=== PATIENT | male | born 1970 | race Caucasian/White ===

== ENCOUNTER 2017-01-24 17:27 | Emergency (ER) | payer OTHER ==
[~2017-01-24 17:27] MED LIST: buPROPion 100 MG TAB PO SCH
--- NOTE | 2017-01-24 17:38 | EDPHY ---
H & P Stated Complaint: abdominal pain, withdrawing from pain meds HPI/ROS: CHIEF COMPLAINT: Abdominal pain secondary to pain medication withdrawal HISTORY OF PRESENT ILLNESS: The patient is a 46 y/o male who complains of severe abdominal pain secondary to opioid medication withdrawal. 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 He has been in withdrawal for a few days. He had been taking 30mg Oxycodone 4-5 times a day, 30mg Morphine extended release twice daily, and 150mg Wellbutrin twice daily. He attempted to stop these prescriptions several months ago, but subsequently started taking the medications again. After moving here from [place], he decided to go to the [facility] to detox from his prescriptions. He stopped taking all of his prescription medications, including Wellbutrin.He is motivated to stop taking his opiate medications and plans on returning to the [facility] after being seen here. Due to withdrawal he is also vomiting, not eating, and experiencing insomnia. Denies seizures, hypertension, chest pain, fever, weakness, paresthesias, or other pertinent symptoms. Denies tobacco or alcohol use. No IVDA. He was sent here from the [facility] for treatment of withdrawal symptoms--no librium available until HOSE STRIPPER is able to assess patient later tonight. REVIEW OF SYSTEMS: A ten point review of systems was performed and is negative with the exception of the items mentioned in the HPI. Past medical history: Umbilical hernia Multiple fractures secondary to a pro-wrestler career Past surgical history: Neck Back Wrist Social history: Recently moved to [place] from [place] Staying with brother Single Non-smoker General Appearance: Looks extremely uncomfortable. Alert. Vital signs reviewed. Blood pressure 142/89, heart rate 119 at triage. Eyes: Pupils equal and round, no conjunctival injection, no discharge. Anicteric. ENT, Mouth: Mucous membranes are moist, no oropharyngeal erythema or edema. Neck: No lymphadenopathy, supple. Respiratory: Lungs are clear to auscultation; no wheezes, rales, or rhonchi. Cardiovascular: Regular rate and rhythm; no murmur, rub, or gallop. Gastrointestinal: Diffuse tenderness with voluntary guarding, abdomen is soft, no masses or organomegaly, bowel sounds normal. Skin: Warm and dry, no rashes on exposed skin, normal color. No piloerection. Back: Nontender to palpation over the thoracolumbar spine. No CVAT. Extremities: No lower extremity edema, no calf tenderness or swelling. Neurological: Alert and oriented. Moving all four extremities easily and equally. Psychiatric: Normal affect. - Personal History Current Tetanus/Diphtheria Vaccine: Yes Current Tetanus Diphtheria and Acellular Pertussis (TDAP): Yes Tetanus Vaccine Date: < 10 years - Medical/Surgical History Hx Asthma: No Hx Chronic Respiratory Disease: No Hx Diabetes: No Hx Cardiac Disease: No Hx Renal Disease: No Hx Cirrhosis: No Hx Alcoholism: No Hx HIV/AIDS: No Hx Splenectomy or Spleen Trauma: No Other PMH: neck sx, back sx, henia, wrist sx - Social History Smoking Status: Never smoked Constitutional: Initial Vital Signs Temperature (C) 36.8 C 01/24/17 17:31 Heart Rate 119 H 01/24/17 17:31 Respiratory Rate 20 01/24/17 17:31 Blood Pressure 142/89 H 01/24/17 17:31 O2 Sat (%) 98 01/24/17 17:31 O2 Delivery Mode Room Air Allergies/Adverse Reactions: cephalexin [From Keflex] Allergy (Verified 01/24/17 17:29) Home Medications: Medication Instructions Recorded ADDERALL 15 MG TABLET 01/24/17 Oxycodone HCl 01/24/17 TESTOSTERONE 01/24/17 buPROPion [Wellbutrin] 100 mg PO BID #14 tab 01/24/17 morphINE 01/24/17 Medical Decision Making ED Course/Re-evaluation: The patient is a 46 yo male who presents with moderate diffuse abdominal tenderness likely secondary to Oxycodone, Morphine, and Wellbutrin withdrawal. We discussed the inadvisability of abruptly stopping Wellbutrin and he is being provided with a RX so that he can wean this medication. Plan on IV, 1L IV NS, 10mg IV Valium, and 4mg IV Zofran. After above medications he was able to sleep. His abdominal pain was improved on re-exam, no peritoneal signs. He was able to take PO. I do not suspect a surgical problem, pancreatitis, gastritis, or gastroenteritis. He is returning to the [facility] via cab for continued detox. Librium prepack provided. He is noted to have continued high blood pressure readings--153/92 with HR of 93. He is advised to have BP re-checked by PCP once he has completed his recovery. He is given referral to [facility]. - Data Points Medications Given: Discontinued Medications Chlordiazepoxide (Librium 25 Mg Prepack#6) 1 btl TAKEHOME EDNOW ONE Stop: 01/24/17 17:59 Last Admin: 01/24/17 18:46 Dose: 1 btl Clonidine (Catapres) 0.2 mg PO EDNOW ONE Stop: 01/24/17 18:14 Last Admin: 01/24/17 18:41 Dose: 0.2 mg Diazepam (Valium Injection) 10 mg IVP EDNOW ONE Stop: 01/24/17 17:53 Last Admin: 01/24/17 18:06 Dose: 10 mg Diazepam (Valium Injection) 5 mg IVP EDNOW ONE Stop: 01/24/17 18:14 Last Admin: 01/24/17 18:42 Dose: Not Given Sodium Chloride (Ns) 1,000 mls @ 0 mls/hr IV EDNOW ONE; Wide Open PRN Reason: Protocol Stop: 01/24/17 17:55 Last Admin: 01/24/17 18:04 Dose: 1,000 mls Ondansetron HCl (Zofran) 4 mg IVP EDNOW ONE Stop: 01/24/17 17:55 Last Admin: 01/24/17 18:05 Dose: 4 mg Departure - Departure Disposition: Home, Routine, Self-Care Clinical Impression: Opiate withdrawal Condition: Fair Instructions: Bupropion (By mouth), Chlordiazepoxide (By mouth), Opioid Withdrawal (ED) Additional Instructions: Return to the [facility] to continue withdrawal. Medication will be available to treat your symptoms. You should not abruptly stop your Wellbutrin. I am prescribing Wellbutrin, 100 mg twice daily--you should wean this. This is not quite the same dosage that you were taking, but this is the dosage that we have available to provide to you. I believe that you were taking extended release 150 mg twice daily. I am starting you on a slightly lower dosage. Referrals: [facility] [Outside] - As per Instructions [facility] [Outside] - As per Instructions Prescriptions: buPROPion [Wellbutrin] 100 mg PO BID #14 tab Report Scribed for: Magi Nguyen Report Scribed by: Jenelle Pope Date of Report: 01/24/17 Time of Report: 18:04 Physician Review and Approval Statement: 01/24/17 17:37 Portions of this note were transcribed by the director biomedical engineering. I, Dr. Magi Nguyen, personally performed the history, physical exam, and medical decision- making; and confirmed the accuracy of the information in the transcribed note.
[2017-01-24] MEDS ORDERED: DIAZEPAM 10 MG/2 ML SYR IVP ONE ×2 (17:52→18:13)
[2017-01-24] MEDS ORDERED: NS 1,000 ML IV ONE (17:54)
[2017-01-24] MEDS ORDERED: ONDANSETRON 4 MG/2 ML VIAL IVP ONE (17:54)
[2017-01-24] MEDS ORDERED: CHLORDIAZEPOXIDE 25MG PREPK#6 BTL TAKEHOME ONE (17:58)
--- NOTE | 2017-01-24 18:35 | ASMTCMCOM ---
CM Note CM Note Notes: CASE MGMT; Patient coming from Withdrawal Management at [facility] (formerly the [facility]) where he has been for 3 days, to the ED for acute abdominal pain related to opiate withdrawal. Patient abruptly stopped taking his narcotic pain medication because he doesn't want to be on them anymore. Pt also abruptly stopped his Wellbutrin and other medications. Pt is here from [place] and initially came here for a job but lost the job recently. Patient has been living with his brother. Patient wants to return to detox and then followup with a local provider since he plans on being in [place] for a few months. Patient provided 10 tabs of his Wellbutrin Rxn so that he can start back up on it. Patient also provided information on [facility] for followup after dc from . Date Signed: 01/24/2017 06:35 PM Electronically Signed By:Jennifer Stanley
[2017-01-24 19:30] VITALS: BP 153/92; PULSE 93; O2SAT 95
[2017-01-24 19:44] VITALS: RESP 18; TEMP 99.1
== END 2017-01-24 20:00 | disposition home or self-care (01) ==
DX: F11.23 Opioid dependence with withdrawal (principal); E86.9 Volume depletion, unspecified
CPT/HCPCS: J2405

== ENCOUNTER 2017-01-27 18:58 | Emergency (ER) | payer OTHER ==
[2017-01-27 19:05] VITALS: RESP 18; TEMP 99
[2017-01-27] MEDS ORDERED: LORazepam 1 MG TAB PO ONE (20:48)
[2017-01-27] MEDS ORDERED: ONDANSETRON DISINTEGRATING 4 MG TAB PO ONE (20:48)
--- NOTE | 2017-01-27 20:54 | EDPHY ---
H & P Time Seen by Provider: 01/27/17 20:32 HPI/ROS: CHIEF COMPLAINT: Opiate withdrawal, insomnia HISTORY OF PRESENT ILLNESS: 46-year-old male history of opiate dependence, has been opiate withdrawal for few days. He was seen emergency department 3 days ago for same complaints with symptoms moderated with administration of benzodiazepine, Zofran, clonidine and discharged back to the withdrawal management at [facility]. He returns complaining of continued insomnia as well as nausea. No abdominal pain. No fever or chills. No hallucination. No suicidal or homicidal ideation. REVIEW OF SYSTEMS: A ten point review of systems was performed and is negative with the exception of the items mentioned in the HPI or PAST MEDICAL & SURGICAL HISTORY: opiate dependence. 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 Appears anxious 2) HEAD: Normocephalic, atraumatic 3) HEENT: Pupils equal, round, reactive to light bilaterally. Sclera anicteric. 4) NECK: Full range of motion, no meningeal signs. 5) LUNGS: Clear auscultation bilaterally, no wheezes, no rhonchi, no retractions. 6) HEART: Regular rate and rhythm, no murmur, no heave, no gallop. 7) ABDOMEN: No guarding, no rebound, no focal tenderness, 8) MUSCULOSKELETAL: Moving all extremities, no focal areas of tenderness, no obvious trauma. No peripheral edema or discoloration. 9) BACK: no visual or palpable abnormality. 10) SKIN: No rash, no petechiae. 11) Psychiatric: Patient is oriented X 3, there is no agitation. DIFFERENTIAL DIAGNOSIS: In no particular include but limited to acute anxiety , acute opiate withdrawal, opiate dependence Smoking Status: Never smoked Constitutional: Initial Vital Signs Temperature (C) 37.2 C 01/27/17 19:00 Heart Rate 94 01/27/17 19:00 Respiratory Rate 18 01/27/17 19:00 Blood Pressure 108/90 H 01/27/17 19:00 O2 Sat (%) 98 01/27/17 19:00 O2 Delivery Mode Room Air Allergies/Adverse Reactions: cephalexin [From Keflex] Allergy (Verified 01/27/17 19:02) Home Medications: Medication Instructions Recorded NK [No Known Home Meds] 01/27/17 MDM/Departure - MDM Medications Given: Discontinued Medications Clonidine (Catapres) 0.2 mg PO EDNOW ONE Stop: 01/27/17 20:50 Last Admin: 01/27/17 21:45 Dose: 0.2 mg Lorazepam (Ativan) 1 mg PO EDNOW ONE Stop: 01/27/17 20:49 Last Admin: 01/27/17 21:39 Dose: 1 mg Ondansetron HCl (Zofran Odt) 4 mg PO EDNOW ONE Stop: 01/27/17 20:49 Last Admin: 01/27/17 21:39 Dose: 4 mg ED Course/Re-evaluation: 8:49 p.m.: Old medical records reviewed. Will administer oral clonidine, Ativan, Zofran and re-evaluate. 9:46 pm: Re-evaluation after oral clonidine Ativan Zofran. He is sleeping. [facility] - Depart Disposition: Home, Routine, Self-Care Clinical Impression: Opiate withdrawal Condition: Good Instructions: Narcotic Abuse (ED) Additional Instructions: Return to the emergency department if you develop new or worsening symptoms, if you develop abdominal pain, vomiting, cannot keep food or fluid down or any other symptoms that concern you. Referrals: [facility] [Outside] - As per Instructions
[2017-01-27 22:23] VITALS: BP 110/86; PULSE 90; O2SAT 95
== END 2017-01-27 22:23 | disposition home or self-care (01) ==
DX: F11.23 Opioid dependence with withdrawal (principal)

== ENCOUNTER 2017-01-28 22:45 | Emergency (ER) | payer OTHER ==
[2017-01-28] MEDS ORDERED: ONDANSETRON DISINTEGRATING 4 MG TAB PO ONE (23:27)
[2017-01-28] MEDS ORDERED: LORazepam 1 MG TAB PO ONE (23:27)
[2017-01-29] MEDS ORDERED: NS 1,000 ML IV ONE (00:30)
[2017-01-29] MEDS ORDERED: KETOROLAC 30 MG/1 ML SDV IVP ONE (00:30)
[2017-01-29] MEDS ORDERED: PROMETHAZINE HCL 25 MG/ML INJ IVP ONE (00:31)
[2017-01-29 00:44] LABS: ALANINE AMINOTRANSFERASE 113 IU/L (21-72); ALBUMIN 3.8 g/dL (3.5-5.0); ALKALINE PHOSPHATASE 67 IU/L (38-126); ANION GAP 13 mEq/L (8-16); ASPARTATE AMINOTRANSFERASE 69 IU/L (17-59); BILIRUBIN,TOTAL 1.7 mg/dL (0.1-1.4); BILIRUBIN-CONJUGATED 0.7 mg/dL (0.0-0.5); CALCIUM 8.9 mg/dL (8.5-10.4); CARBON DIOXIDE 30 mEq/l (22-31); CHLORIDE 92 mEq/L (97-110); CREATININE 1.5 mg/dL (0.7-1.3); GLOMERULAR FILTRATION RATE 50; GLUCOSE 106 mg/dL (70-100); POTASSIUM 3.6 mEq/L (3.5-5.2); SODIUM 135 mEq/L (134-144); TOTAL PROTEIN 6.7 g/dL (6.3-8.2)
[2017-01-29] MEDS ORDERED: IOPAMIDOL (ISOVUE-300) 100 ML BTL ONE (00:59)
[2017-01-29 01:00] LABS: % IMMATURE GRANULYOCYTES 1.3 % (0.0-1.1); ABSOLUTE IMMATURE GRANULOCYTES 0.26 10^3/uL (0.00-0.10); ADD DIFF? NO; ADD MORPH? NO; ADD SCAN? NO; ATYPICAL LYMPHOCYTE FLAG 0 (0-99); FRAGMENT RBC FLAG 0 (0-99); HEMATOCRIT 53.5 % (40.0-51.0); HEMOGLOBIN 18.4 g/dL (13.7-17.5); LEFT SHIFT FLG 0 (0-99); LIPEMIA HEMOLYSIS FLAG 90 (0-99); MEAN CELL HEMOGLOBIN 29.9 pg (27.9-34.1); MEAN CELL HEMOGLOBIN CONCENTR. 34.4 g/dL (32.4-36.7); MEAN CELL VOLUME 86.9 fL (81.5-99.8); MEAN PLATELET VOLUME 9.6 fL (8.7-11.7); PLATELET CLUMPS FLAG 10 (0-99); PLATELET COUNT 373 10^3/uL (150-400); RED BLOOD CELL COUNT 6.16 10^6/uL (4.40-6.38); RED CELL DISTRIBUTION WIDTH 13.9 % (11.5-15.2)
[2017-01-29] MEDS: NS 1,000 ML IV ONE ×2 (01:19→01:20)
--- NOTE | 2017-01-29 02:56 | EDPHY ---
H & P Time Seen by Provider: 01/28/17 23:26 HPI/ROS: HPI The patient presents from the [facility] with continued abdominal pain, now vomiting. He has been seen several times in the emergency department for this after stopping his opiate prescriptions approximately 5 days ago. Today after vomiting he developed periumbilical abdominal pain with a warm sensation coming over his body. It feels different than his other pain. He continues to have diarrhea and denies any fever.. REVIEW OF SYSTEMS Constitutional: No fever, no chills. Eyes: No discharge. ENT: No sore throat. Cardiovascular: No chest pain, no palpitations. Respiratory: No cough, no shortness of breath. Gastrointestinal: See HPI Genitourinary: No hematuria. Musculoskeletal: No back pain. Skin: No rashes. Neurological: No headache. 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 PHYSICAL General Appearance: Alert, no distress Eyes: Pupils equal and round no pallor or injection ENT, Mouth: Mucous membranes moist Respiratory: There are no retractions, lungs are clear to auscultation Cardiovascular: Regular rate and rhythm Gastrointestinal: Abdomen is soft with diffuse tenderness without rebound or guarding Neurological: A&O, moves all extremities Skin: Warm and dry, no rashes Musculoskeletal: Neck is supple non tender Extremities: symmetrical, full range of motion Psychiatric: Patient is oriented X 3, there is no agitation Smoking Status: Never smoked Constitutional: Initial Vital Signs Temperature (C) 37.6 C 01/28/17 22:57 Heart Rate 120 H 01/28/17 22:57 Respiratory Rate 16 01/28/17 22:57 Blood Pressure 111/82 H 01/28/17 22:57 O2 Sat (%) 95 01/28/17 22:57 O2 Delivery Mode Room Air Allergies/Adverse Reactions: cephalexin [From Keflex] Allergy (Verified 01/27/17 19:02) Home Medications: Medication Instructions Recorded NK [No Known Home Meds] 01/27/17 MDM/Departure - MDM Imaging Results: CT abdomen pelvis with IV contrast demonstrates small amount of free fluid in the pelvis of uncertain etiology, pancreatic head inflammation, discussed with Dr. Boothe of Radiology. Imaging: Discussed imaging studies w/ marble setter helper Radiologist Medications Given: Discontinued Medications Clonidine (Catapres) 0.2 mg PO EDNOW ONE Stop: 01/28/17 23:28 Last Admin: 01/28/17 23:49 Dose: 0.2 mg Sodium Chloride (Ns) 1,000 mls @ 0 mls/hr IV EDNOW ONE; Wide Open PRN Reason: Protocol Stop: 01/29/17 00:31 Last Admin: 01/29/17 01:20 Dose: 1,000 mls Sodium Chloride (Ns) 1,000 mls @ 0 mls/hr IV EDNOW ONE; Wide Open PRN Reason: Protocol Stop: 01/29/17 00:31 Last Admin: 01/29/17 01:20 Dose: 1,000 mls Ketorolac Tromethamine (Toradol) 15 mg IVP EDNOW ONE Stop: 01/29/17 00:31 Last Admin: 01/29/17 01:18 Dose: 15 mg Lorazepam (Ativan) 1 mg PO EDNOW ONE Stop: 01/28/17 23:28 Last Admin: 01/28/17 23:38 Dose: 1 mg Ondansetron HCl (Zofran Odt) 4 mg PO EDNOW ONE Stop: 01/28/17 23:28 Last Admin: 01/28/17 23:38 Dose: 4 mg Promethazine HCl (Phenergan) 25 mg IVP EDNOW ONE Stop: 01/29/17 00:32 Last Admin: 01/29/17 01:19 Dose: 25 mg ED Course/Re-evaluation: This is a 46-year-old male with history of opiate abuse, now at [facility] for detox. He has not had any opiates in 5 days. He has symptoms of abdominal pain, vomiting, diarrhea. He has been seen for this abdominal pain several times in the emergency room, however today the pain is much worse. Differential diagnosis includes bowel perforation, gastritis, pancreatitis. In the emergency department, patient was given IV fluids and antiemetics. Labs were checked and did reveal hemoconcentration consistent with dehydration. His CT scan was performed showing free fluid in the pelvis, I am not sure what could have caused this. He also has some inflammation of the pancreatic head with a normal lipase. I do not think either of these findings are contributing to his symptomatology. He has felt better after receiving fluids and medications. He has not had any ongoing vomiting. He will be [facility] back to the [facility]. - Depart Disposition: Home, Routine, Self-Care Clinical Impression: Opiate withdrawal, Dehydration Abdominal pain Qualifiers: Abdominal location: generalized Qualified Code(s): R10.84 - Generalized abdominal pain Vomiting Qualifiers: Vomiting type: unspecified Vomiting Intractability: unspecified Nausea presence : with nausea Qualified Code(s): R11.2 - Nausea with vomiting, unspecified Condition: Good Instructions: Dehydration (ED) Additional Instructions: Please make sure to drink plenty of fluids. You should return to the emergency room if your worse in any way. Referrals: [facility] [Outside] - As per Instructions
--- NOTE | 2017-01-29 03:20 | EDPHY ---
H & P Stated Complaint: Abd pain Time Seen by Provider: 01/28/17 23:26 - Personal History Current Tetanus/Diphtheria Vaccine: Unsure Current Tetanus Diphtheria and Acellular Pertussis (TDAP): Unsure Tetanus Vaccine Date: < 10 years - Medical/Surgical History Hx Asthma: No Hx Chronic Respiratory Disease: No Hx Diabetes: No Hx Cardiac Disease: No Hx Renal Disease: No Hx Cirrhosis: No Hx Alcoholism: No Hx HIV/AIDS: No Hx Splenectomy or Spleen Trauma: No Other PMH: neck sx, back sx, henia, wrist sx. opiate addiction - Social History Smoking Status: Never smoked Constitutional: Initial Vital Signs Temperature (C) 37.6 C 01/28/17 22:57 Heart Rate 120 H 01/28/17 22:57 Respiratory Rate 16 01/28/17 22:57 Blood Pressure 111/82 H 01/28/17 22:57 O2 Sat (%) 95 01/28/17 22:57 O2 Delivery Mode Room Air Allergies/Adverse Reactions: cephalexin [From Keflex] Allergy (Verified 01/27/17 19:02) Home Medications: Medication Instructions Recorded NK [No Known Home Meds] 01/27/17 Medical Decision Making - Data Points Laboratory Results: Laboratory Results 01/28/17 23:23 01/28/17 23:23 01/28/17 01/28/17 23:23 23:23 WBC 19.55 10^3/uL H 10^3/uL (3.80-9.50) RBC 6.16 10^6/uL 10^6/uL (4.40-6.38) Hgb 18.4 g/dL H g/dL (13.7-17.5) Hct 53.5 % H % (40.0-51.0) MCV 86.9 fL fL (81.5-99.8) MCH 29.9 pg pg (27.9-34.1) MCHC 34.4 g/dL g/dL (32.4-36.7) RDW 13.9 % % (11.5-15.2) Plt Count 373 10^3/uL 10^3/uL (150-400) MPV 9.6 fL fL (8.7-11.7) Neut % (Auto) 77.6 % H % (39.3-74.2) Lymph % (Auto) 12.1 % L % (15.0-45.0) Kimball % (Auto) 8.3 % % (4.5-13.0) Eos % (Auto) 0.4 % L % (0.6-7.6) Baso % (Auto) 0.3 % % (0.3-1.7) Nucleat RBC Rel Count 0.0 % % (0.0-0.2) Absolute Neuts (auto) 15.17 10^3/uL H 10^3/uL (1.70-6.50) Absolute Lymphs (auto) 2.37 10^3/uL 10^3/uL (1.00-3.00) Absolute Monos (auto) 1.62 10^3/uL H 10^3/uL (0.30-0.80) Absolute Eos (auto) 0.08 10^3/uL 10^3/uL (0.03-0.40) Absolute Basos (auto) 0.05 10^3/uL 10^3/uL (0.02-0.10) Absolute Nucleated RBC 0.00 10^3/uL 10^3/uL (0-0.01) Immature Gran % 1.3 % H % (0.0-1.1) Immature Gran # 0.26 10^3/uL H 10^3/uL (0.00-0.10) Sodium 135 mEq/L mEq/L (134-144) Potassium 3.6 mEq/L mEq/L (3.5-5.2) Chloride 92 mEq/L L mEq/L (97-110) Carbon Dioxide 30 mEq/l mEq/l (22-31) Anion Gap 13 mEq/L mEq/L (8-16) BUN 16 mg/dL mg/dL (7-23) Creatinine 1.5 mg/dL H mg/dL (0.7-1.3) Estimated GFR 50 Glucose 106 mg/dL H mg/dL (70-100) Calcium 8.9 mg/dL mg/dL (8.5-10.4) Total Bilirubin 1.7 mg/dL H mg/dL (0.1-1.4) Conjugated Bilirubin 0.7 mg/dL H mg/dL (0.0-0.5) Unconjugated Bilirubin 1.0 mg/dL mg/dL (0.0-1.1) AST 69 IU/L H IU/L (17-59) ALT 113 IU/L H IU/L (21-72) Alkaline Phosphatase 67 IU/L IU/L (38-126) Total Protein 6.7 g/dL g/dL (6.3-8.2) Albumin 3.8 g/dL g/dL (3.5-5.0) Lipase 104 IU/L IU/L (23-300) Medications Given: Discontinued Medications Clonidine (Catapres) 0.2 mg PO EDNOW ONE Stop: 01/28/17 23:28 Last Admin: 01/28/17 23:49 Dose: 0.2 mg Sodium Chloride (Ns) 1,000 mls @ 0 mls/hr IV EDNOW ONE; Wide Open PRN Reason: Protocol Stop: 01/29/17 00:31 Last Admin: 01/29/17 01:20 Dose: 1,000 mls Sodium Chloride (Ns) 1,000 mls @ 0 mls/hr IV EDNOW ONE; Wide Open PRN Reason: Protocol Stop: 01/29/17 00:31 Last Admin: 01/29/17 01:20 Dose: 1,000 mls Ketorolac Tromethamine (Toradol) 15 mg IVP EDNOW ONE Stop: 01/29/17 00:31 Last Admin: 01/29/17 01:18 Dose: 15 mg Lorazepam (Ativan) 1 mg PO EDNOW ONE Stop: 01/28/17 23:28 Last Admin: 01/28/17 23:38 Dose: 1 mg Ondansetron HCl (Zofran Odt) 4 mg PO EDNOW ONE Stop: 01/28/17 23:28 Last Admin: 01/28/17 23:38 Dose: 4 mg Promethazine HCl (Phenergan) 25 mg IVP EDNOW ONE Stop: 01/29/17 00:32 Last Admin: 01/29/17 01:19 Dose: 25 mg Departure - Departure Disposition: Home, Routine, Self-Care Clinical Impression: Opiate withdrawal, Dehydration Abdominal pain Qualifiers: Abdominal location: generalized Qualified Code(s): R10.84 - Generalized abdominal pain Vomiting Qualifiers: Vomiting type: unspecified Vomiting Intractability: unspecified Nausea presence : with nausea Qualified Code(s): R11.2 - Nausea with vomiting, unspecified Condition: Good Instructions: Dehydration (ED) Additional Instructions: Please make sure to drink plenty of fluids. You should return to the emergency room if your worse in any way. Referrals: [facility] [Outside] - As per Instructions
[2017-01-29 03:47] VITALS: BP 106/71; PULSE 87; RESP 18; TEMP 99; O2SAT 91
== END 2017-01-29 04:02 | disposition home or self-care (01) ==
LOC: EDUNIT#
DX: R10.84 Generalized abdominal pain (principal); R11.2 Nausea with vomiting, unspecified; E86.0 Dehydration; F11.23 Opioid dependence with withdrawal; E86.9 Volume depletion, unspecified
CPT/HCPCS: 96374; J1885; J2550; Q9967

== ENCOUNTER 2017-02-07 16:04 | Emergency (ER) | payer MEDICAID, OTHER ==
[2017-02-07 16:33] VITALS: RESP 18; TEMP 98.8
--- NOTE | 2017-02-07 17:37 | EDPHY ---
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 The patient also stopped Wellbutrin 1 week ago. Since stopping opiates the patient has been unable to fall asleep. At times he goes up to 3 days without sleep. He feels like he is unable to hold still and has occasional nausea. He denies vomiting or diarrhea. The patient has a history of genital herpes with occasional breakouts in the groin region. He is requesting a prescription for Valtrex. REVIEW OF SYSTEMS: A comprehensive 10 point review of systems is otherwise negative aside from elements mentioned in the history of present illness. Past Medical/Surgical History: Opiate addiction, quit opiates 1 month ago. Nerve ablation, Umbilical hernia. Social History: Former [employer]. Smoking Status: Never smoked Physical Exam: General Appearance: Alert, pleasant Eyes: Pupils equal and round, no conjunctival pallor or injection ENT, Mouth: Mucous membranes moist Neck: Normal inspection Respiratory: Lungs are clear to auscultation Cardiovascular: Regular rate and rhythm Gastrointestinal: Abdomen is soft and non-tender Neurological: A&O, nonfocal, normal gait Skin: Warm and dry, no rash Extremities: Nontender, no pedal edema Psychiatric: Rambling thought process, difficulty staying on topic. Constitutional: Initial Vital Signs Temperature (C) 37.1 C 02/07/17 16:26 Heart Rate 94 02/07/17 16:26 Respiratory Rate 18 02/07/17 16:26 Blood Pressure 124/72 H 02/07/17 16:26 O2 Sat (%) 96 02/07/17 16:26 O2 Delivery Mode Room Air Allergies/Adverse Reactions: cephalexin [From Keflex] Allergy (Intermediate, Verified 02/07/17 16:33) Vomiting Home Medications: Medication Instructions Recorded valACYclovir [Valtrex (*)] 500 mg PO BID #20 tab 02/07/17 Medical Decision Making ED Course/Re-evaluation: Patient with opiate addiction, quit 1 month ago, presents with insomnia. After stopping opiates the patient has been having difficulty sleeping. The patient has a rambling thought process with difficulty staying on topic. I instructed the patient to take Benadryl 1 hour prior to going to bed. He also tells me he has a history of genital herpes with occasional break outs. He is requesting a prescription for Valtrex. The patient recently relocated here from [place], I referred the patient to the aeronautical products sales engineer primary care physician. Departure - Departure Disposition: Home, Routine, Self-Care Clinical Impression: Insomnia Qualifiers: Insomnia type: unspecified Qualified Code(s): G47.00 - Insomnia, unspecified Condition: Good Instructions: Insomnia (ED) Additional Instructions: Take 1-2 tablets of Benadryl 1 hour before bed to help with sleep. You have been referred to a primary care physician below. Please call to arrange followup and establish care. Referrals: Tamiko Bergeron MD [Medical Doctor] - As per Instructions (Primary Care Physician) Prescriptions: valACYclovir [Valtrex (*)] 500 mg PO BID #20 tab Report Scribed for: Nancie Babin Report Scribed by: Sherry Wei Date of Report: 02/07/17 Time of Report: 17:37 Physician Review and Approval Statement: 02/07/17 17:37 Portions of this note were transcribed by a medical attendant. I personally performed the history, physical exam, and medical decision-making; and confirmed the accuracy of the information in the transcribed note.
[2017-02-07 17:52] VITALS: BP 127/86; PULSE 69; O2SAT 95
== END 2017-02-07 17:52 | disposition home or self-care (01) ==
DX: G47.00 Insomnia, unspecified (principal)

== ENCOUNTER 2017-02-13 10:35 | Emergency (ER) | payer MEDICAID ==
[2017-02-13] MEDS ORDERED: NS 1,000 ML IV ONE (11:09)
[2017-02-13] MEDS ORDERED: LORazepam 2 MG/ML INJ IVP ONE (11:09)
--- NOTE | 2017-02-13 11:26 | EDPHY ---
H & P Smoking Status: Never smoked Time Seen by Provider: 02/13/17 10:54 HPI/ROS: CHIEF COMPLAINT: Abdominal pain, vomiting HISTORY OF PRESENT ILLNESS: 46-year-old male presents to the emergency department by private vehicle complaining of abdominal pain and vomiting especially over last few days. The patient states that he abruptly stopped his opiate medication including oxycodone and morphine 1 month ago. He has been addicted to opiates for 20 years. He also stopped his Wellbutrin. He states that he just wanted to go off of the medication. He has a history of chronic orthopedic injuries and chronic neck and back pain. He feels extremely anxious. He has vomited multiple times. He states that he has not been able to eat or drink anything for the last 3 days. He has urinated very little. He tells me that his last use of opiate medication was 1 month ago. He has been seen in the emergency department for this 5 times just this month alone. REVIEW OF SYSTEMS: Constitutional: No fever, no chills. Eyes: No double or blurry vision. ENT: No sore throat. Respiratory: No cough, no shortness of breath. Cardiac: No chest pain. Gastrointestinal: Abdominal pain and vomiting as above. No diarrhea. Genitourinary: No dysuria. Musculoskeletal: No neck or back pain. Skin: No rashes. Neurological: No headache. (Darlene Burnsa [place]) Past Medical/Surgical History: Chronic pain, opiate dependent, umbilical hernia (Darlene Burnsa [place]) Social History: Single from [place], currently staying with his brother. (Keke Burnsrina [place]) Physical Exam: General Appearance: Alert, moderate distress. Anxious. Eyes: Pupils equal and round. Extraocular motions are all intact. ENT: Mouth: Mucous membranes moist. Respiratory: No wheezing, rhonchi, or rales, lungs are clear to auscultation. Cardiovascular: Regular rate and rhythm. Gastrointestinal: Abdomen is soft. He has diffuse tenderness with palpation to the abdomen. There is no rebound, guarding or masses noted. No CVA tenderness bilaterally. Neurological: Alert and oriented x 3, cranial nerves II through XII grossly intact Skin: Warm and dry, no rashes. Musculoskeletal: Nontender to palpate along the cervical, thoracic or lumbar spine. Neck is supple. Extremities: Full range of motion and no peripheral edema. Psychiatric: Patient is oriented X 3, there is no agitation. (Nancy Burns) Constitutional: Initial Vital Signs Temperature (C) 36.7 C 02/13/17 10:39 Heart Rate 76 02/13/17 10:39 Respiratory Rate 17 02/13/17 10:39 Blood Pressure 132/95 H 02/13/17 10:39 O2 Sat (%) 95 02/13/17 10:39 O2 Delivery Mode Room Air Allergies/Adverse Reactions: cephalexin [From Keflex] Allergy (Intermediate, Verified 02/13/17 10:38) Vomiting Home Medications: Medication Instructions Recorded valACYclovir [Valtrex (*)] 500 mg PO BID #20 tab 02/07/17 Medical Decision Making ED Course/Re-evaluation: 46-year-old male presents to the emergency department with abdominal pain, vomiting and feeling extremely anxious. The patient was on long-term opiates for over 20 years and then stop these abruptly on his own 4 weeks ago. Patient has been seen 5 times in the emergency department with same complaint. He had a CT scan of the abdomen pelvis 2 weeks ago. I do not think this seems to be repeated. He feels that these are the same ongoing symptoms. An IV was established she was given a mg of Ativan. He was also given 12.5 mg of Phenergan IV. He understands that opiate medication would not prescribe for him in the emergency department. The patient was resting comfortably. He states that he was beginning to feel very anxious. He had a heart rate of 52 at 1 point. I did not feel comfortable giving additional benzodiazepines. I did explain to him that that medication is extremely habit-forming. I encouraged him to follow up with animal husbandry technician as well as primary care provider for possibly medications that he can take to prevent him from feeling anxious. His brother was at bedside and I talked with the brother at great detail while the patient was sleeping about the importance of close follow-up. Mother verbalized understanding. He will be discharged home with his brother. e commerce marketing manager has also arranged for the patient to [facility]. (Nancy Burns) I did not see this patient while he was in the emergency department. However his care was discussed with the PA while the patient was in the department. I agree with treatment plan and management (Michael,Ozzie S) Differential Diagnosis: Including but not limited to withdrawal, electrolyte abnormality, urinary tract infection, pyelonephritis, substance abuse, acute appendicitis, dehydration, bowel obstruction (Nancy Burns) - Data Points Laboratory Results: Laboratory Results 02/13/17 11:28 02/13/17 11:28 Medications Given: Discontinued Medications Sodium Chloride (Ns) 1,000 mls @ 0 mls/hr IV EDNOW ONE; Wide Open PRN Reason: Protocol Stop: 02/13/17 11:10 Last Admin: 02/13/17 11:36 Dose: 1,000 mls Lorazepam (Ativan Injection) 1 mg IVP EDNOW ONE Stop: 02/13/17 11:10 Last Admin: 02/13/17 11:36 Dose: 1 mg Promethazine HCl (Phenergan) 12.5 mg IVP EDNOW ONE Stop: 02/13/17 14:19 Last Admin: 02/13/17 14:29 Dose: 12.5 mg Departure - Departure Disposition: Home, Routine, Self-Care Clinical Impression: Opiate withdrawal Abdominal pain Qualifiers: Abdominal location: generalized Qualified Code(s): R10.84 - Generalized abdominal pain Vomiting Qualifiers: Vomiting type: unspecified Vomiting Intractability: non-intractable Nausea presence: with nausea Qualified Code(s): R11.2 - Nausea with vomiting, unspecified Condition: Good Instructions: Acute Nausea and Vomiting (ED), Acute Abdominal Pain (ED) Additional Instructions: Abdominal Pain: Return to the Emergency Department immediately for increasing pain, fever, vomiting, or if not completely better in 8-12 hours. Clear liquids and slowly advance diet as tolerated. Follow up with [facility] this week to recheck. Our database security administrator will be in contact with you on Wednesday to follow-up and see if we can further assist you with obtaining outpatient primary care services. Feel free to contact ED Case Management at [phone] if you have any further questions/concerns. Referrals: FATEMEH ASHTON [Other] - As per Instructions [facility],. [Clinic] - As per Instructions Jaqueline Christianson MD [Medical Doctor] - As per Instructions ( Vending Machine Assembler on-call)
[2017-02-13 11:36] LABS: % IMMATURE GRANULYOCYTES 0.4 % (0.0-1.1); ABSOLUTE IMMATURE GRANULOCYTES 0.06 10^3/uL (0.00-0.10); ADD DIFF? NO; ADD MORPH? NO; ADD SCAN? NO; ATYPICAL LYMPHOCYTE FLAG 0 (0-99); FRAGMENT RBC FLAG 0 (0-99); HEMATOCRIT 50.7 % (40.0-51.0); HEMOGLOBIN 17.4 g/dL (13.7-17.5); LEFT SHIFT FLG 0 (0-99); LIPEMIA HEMOLYSIS FLAG 90 (0-99); MEAN CELL HEMOGLOBIN CONCENTR. 34.3 g/dL (32.4-36.7); MEAN CELL VOLUME 87.4 fL (81.5-99.8); MEAN PLATELET VOLUME 9.4 fL (8.7-11.7); PLATELET CLUMPS FLAG 0 (0-99); PLATELET COUNT 292 10^3/uL (150-400); RED CELL DISTRIBUTION WIDTH 13.8 % (11.5-15.2)
[2017-02-13 11:52] LABS: ANION GAP 15 mEq/L (8-16); CALCIUM 9.9 mg/dL (8.5-10.4); CARBON DIOXIDE 21 mEq/l (22-31); CHLORIDE 105 mEq/L (97-110); CREATININE 1.2 mg/dL (0.7-1.3); GLOMERULAR FILTRATION RATE > 60; GLUCOSE 138 mg/dL (70-100); POTASSIUM 4.4 mEq/L (3.5-5.2); SODIUM 141 mEq/L (134-144)
[2017-02-13] MEDS ORDERED: PROMETHAZINE HCL 25 MG/ML INJ IVP ONE (14:18)
[2017-02-13 14:31] LABS: ALBUMIN 4.2 g/dL (3.5-5.0); BILIRUBIN,TOTAL 1.4 mg/dL (0.1-1.4); BILIRUBIN-CONJUGATED 0.5 mg/dL (0.0-0.5); BILIRUBIN-UNCONJUGATED 0.9 mg/dL (0.0-1.1); TOTAL PROTEIN 7.2 g/dL (6.3-8.2)
[2017-02-13 14:33] VITALS: TEMP 98.6
--- NOTE | 2017-02-13 15:42 | ASMTCMCOM ---
CM Note CM Note Notes: Patient presents to the ED for his 5th visit in 3 weeks with the same complaint: opioid withdrawal symptoms including insomnia, nausea, vomiting, and abdominal pain. Patient states his last use of opioids was more than a month ago. Patient had also abruptly stopped his Wellbutrin, Xanax and other previously prescribed medications about a month ago. Patient recently moved to [place] from [place]. Patient is living with his brother. This CM visited with patient on 01/24 and provided him information on [facility] and also provided him 10 tabs of Wellbutrin. At that time patient was receiving treatment at [facility]. When asked why he hasn't followed up with [facility], patient stated he didn't know anything about [facility]. Patient had also been referred on 02/07 to the on-call PCP Dr. Hernandez but patient states they wouldn't be able to see him until February. This CM offered to get patient an appointment at [facility] on Thursday 02/15 or Friday 02/16. Patient agreeable to this plan. Patient gave permission to leave a voicemail on his cell phone if he doesn't answer. We discussed patient's use of marijuana and patient states he has been "smoking a lot" and eating "gummy bear edibles" because he says doing so helps his nausea and vomiting. We discussed the possibility of his marijuana use triggering/causing his nausea and vomiting and he said he will try to not smoke or eat edibles and see if his symptoms improve. Patient denies doing any other drugs. He states he was unable to fill the Valtrex prescription he was given on 02/07 "because my insurance was confusing to the pharmacist." He also states he was taking Benadryl to help him sleep but "it stopped working." Patient denies taking any benzodiazepines (besides the ones given to him in the ED on 01/24, 01/27 and 01/28) for the past month. However, his urine toxicology was non-negative for benzos. When patient had been asked to provide a urine sample he told the ED RN he had already collected a sample in anticipation of needing to provide one, and that it was in his jacket pocket. Patient was provided information sheets for [facility] and [facility]. CM to follow up with patient on Wednesday. Patient was discharged and his brother picked him up. Date Signed: 02/13/2017 03:41 PM Electronically Signed By:Jennifer Stanley RN
[2017-02-13 16:03] VITALS: BP 144/106; PULSE 62; RESP 18; O2SAT 95
--- NOTE | 2017-02-14 11:46 | ASDISCHSUM ---
Discharge Information Plan Status: Medically Cleared to Leave: Discharge Date:02/13/2017 04:03 PM CM D/C Disposition: ADT D/C Disposition:Home, Routine, Self-Care Projected Discharge Date:02/13/2017 04:03 PM Transportation at D/C: Discharge Delay Reason: Follow-Up Date:02/13/2017 04:03 PM Discharge Slot: Final Diagnosis: Placement Information Patient Contact Information Contact Name:SOREN Relationship: Address:[address] Work Phone: City:[facility] Phone: [facility]/Zip Code:[place] [address] Email: Financial Information Financial Class: Primary Plan Desc:[employer] Primary Plan Number:[id number] Secondary Plan Desc: Secondary Plan Number: Assessment Information [facility] Progress Note CM Note CM Note Notes: Patient presents to the ED for his 5th visit in 3 weeks with the same complaint: opioid withdrawal symptoms including insomnia, nausea, vomiting, and abdominal pain. Patient states his last use of opioids was more than a month ago. Patient had also abruptly stopped his Wellbutrin, Xanax and other previously prescribed medications about a month ago. Patient recently moved to [place] from [place]. Patient is living with his brother. This CM visited with patient on 01/24 and provided him information on [facility] and also provided him 10 tabs of Wellbutrin. At that time patient was receiving treatment at [facility]. When asked why he hasn't followed up with [facility], patient stated he didn't know anything about [facility]. Patient had also been referred on 02/07 to the on-call PCP Dr. Hernandez but patient states they wouldn't be able to see him until February. This offered to get patient an appointment at [facility] on Thursday 02/15 or Friday 02/16. Patient agreeable to this plan. Patient gave permission to leave a voicemail on his cell phone if he doesn't answer. We discussed patient's use of marijuana and patient states he has been "smoking a lot" and eating "gummy bear edibles" because he says doing so helps his nausea and vomiting. We discussed the possibility of his marijuana use triggering/causing his nausea and vomiting and he said he will try to not smoke or eat edibles and see if his symptoms improve. Patient denies doing any other drugs. He states he was unable to fill the Valtrex prescription he was given on 02/07 "because my insurance was confusing to the pharmacist." He also states he was taking Benadryl to help him sleep but "it stopped working." Patient denies taking any benzodiazepines (besides the ones given to him in the ED on 01/24, 01/27 and 01/28) for the past month. However, his urine toxicology was non-negative for benzos. When patient had been asked to provide a urine sample he told the ED RN he had already collected a sample in anticipation of needing to provide one, and that it was in his jacket pocket. Patient was provided information sheets for [facility] and [facility]. CM to follow up with patient on Wednesday. Patient was discharged and his brother picked him up. Date Signed: 02/13/2017 03:41 PM Electronically Signed By:Jennifer Stanley RN Intervention Information
== END 2017-02-13 16:03 | disposition home or self-care (01) ==
DX: R10.84 Generalized abdominal pain (principal); R11.2 Nausea with vomiting, unspecified; F11.23 Opioid dependence with withdrawal; E86.9 Volume depletion, unspecified
CPT/HCPCS: 80305; 96374; J2060; J2550